=== PATIENT | male | born 1990 | race African-American/Black ===

== ENCOUNTER 2020-01-13 09:13 | Emergency (ER) | payer MEDICAID, OTHER ==
[~2020-01-13] VITALS: Ht 180.3 cm; Wt 81.6 kg
[2020-01-13 09:21] VITALS: BP 136/87
[2020-01-13] MEDS ORDERED: IBUPROFEN 800 MG TAB PO ONE (10:00)
[2020-01-13] MEDS ORDERED: cefTRIAXone SOD 1,000 MG VL IM ONE (10:00)
[2020-01-13] MEDS ORDERED: KETOROLAC TROMETH 60MG/2ML VIAL IM ONE (10:00)
== END 2020-01-13 10:32 | disposition home or self-care (01) ==
LOC: ER 09:13
DX: N45.1 Epididymitis (principal); N39.0 Urinary tract infection, site not specified; F17.210 Nicotine dependence, cigarettes, uncomplicated
CPT/HCPCS: 76870; 81002; 96372; 99284; J0696